=== PATIENT | male | born 1935 | race Caucasian/White ===

== ENCOUNTER 2016-06-23 06:40 | Inpatient (IN) | payer OTHER ==
[~2016-06-23] VITALS: Ht 177.8 cm; Wt 74.8 kg
[2016-06-23] VITALS (7 sets, daily range): BP systolic 141–147; BP diastolic 73–76; PULSE 73–98; RESP 16–20; TEMP 97.8–99.7; O2SAT 86–98
[2016-06-23] MEDS ORDERED: cefOXitin SODIUM 2 GM in D5W 100 ML IV ONE (07:00)
[2016-06-23] MEDS ORDERED: ALVIMOPAN 12 MG CAPSULE PO ONE ×3 (07:15→07:45)
[2016-06-23] MEDS ORDERED: LR 1,000 ML IV SCH (10:34)
[2016-06-23] MEDS ORDERED: MORPHINE 2 MG/ML INJ. SYRINGE IVP PRN ×2 (10:45)
[2016-06-23] MEDS ORDERED: METOCLOPRAMIDE HCL 10 MG/2 ML VIAL IVP PRN (10:45)
[2016-06-23] MEDS ORDERED: ONDANSETRON HCL 4 MG/2 ML VIAL IVP PRN (11:15)
[2016-06-23] MEDS ORDERED: HYDROcodone/ACETAMIN 5-325 MG TAB (NORCO/ VICODIN) PO PRN ×2 (11:15)
[2016-06-23] MEDS ORDERED: ACETAMINOPHEN 325 MG TABLET PO PRN (11:15)
[2016-06-23] MEDS: MORPHINE 2 MG/ML INJ. SYRINGE IVP PRN ×2 (11:21→12:03)
[2016-06-23] MEDS ORDERED: MORPHINE 4 MG/ML INJ. SYRINGE ONE ×2 (11:30→12:08)
--- NOTE | 2016-06-23 12:30 | NUR ---
OPENING NOTES, RECEIVED PT FROM PACU, PT IS AAOX4 , C/O 09/22 PAIN, WILL MEDICATE ARNALDO, OREINETED TO ROOM AND NURSES, USE OF CALL LIGHT AND TELEPHONE . SAUCEDO ON FOOT OF BED, IF INFUSING WELL. FAMILY AT BEDSIDE. INSTRUCTED TO CALL FOR PAIN MED AND ASSIST.
[2016-06-23] MEDS: HYDROmorphone 1 MG INJ. 1 MG/ML AMPUL IVP PRN ×2 (13:17→21:28)
[2016-06-23] MEDS: D5/0.45 NS 1,000 ML IV SCH ×2 (13:28→21:20)
[2016-06-23] MEDS ORDERED: D5W 250 ML IV.SOLN IV ONE (14:00)
[2016-06-23] MEDS ORDERED: NS 1000 ML BAG IV ONE (14:00)
[2016-06-23] MEDS ORDERED: fentaNYL CITRATE 250 MCG/5 ML AMP ONE (14:00)
[2016-06-23] MEDS ORDERED: MIDAZOLAM HCL 5 MG/5 ML VIAL ONE (14:00)
[2016-06-23] MEDS ORDERED: BUPIVACAINE LIPOSOME/PF 266 MG/20 ML VIAL INFIL ONE (14:00)
[2016-06-23] MEDS ORDERED: ROCURONIUM BROMIDE 10 MG/ML (ZEMURON) ONE (14:00)
[2016-06-23] MEDS ORDERED: LR 1,000 ML IV.SOLN IV ONE (14:00)
[2016-06-23] MEDS ORDERED: ONDANSETRON HCL 4 MG/2 ML VIAL ONE (14:00)
[2016-06-23] MEDS ORDERED: SEVOFLURANE 15 MIN GAS INH ONE (14:00)
[2016-06-23] MEDS ORDERED: PROPOFOL 200MG/ 20ML VIAL (DIPRIVAN) IV ONE (14:00)
[2016-06-23] MEDS ORDERED: cefOXitin SODIUM 2 GM/VIAL (MEFOXIN) ONE (14:00)
--- NOTE | 2016-06-23 14:00 | NUR ---
NOTES, PT IN BED,, FAMILY AT BEDSIDE, DENIES PAIN , NO SOB, NO DISTRESS. IV INFUSING WELL. SAUCEDO AT FOOT OF BED, CALLIGHT IN REACH, BED IN LOW POSITION. INSTRUCTED TO CALL FOR PAIN MED AND ASSIST
[2016-06-23 15:18] LABS: HEMATOCRIT 33.9 % (36-54); HEMOGLOBIN 11.3 g/dL (14.0-18.0)
[2016-06-23 15:26] LABS: ANION GAP 7 (5-15); CALCIUM 7.7 mg/dL (8.4-11.0); CHLORIDE 108 mmol/L (98-107); CREATININE 0.98 mg/dL (0.55-1.30); GLUCOSE 188 mg/dL (70-99); SODIUM SERUM 143 mmol/L (136-145); UREA NITROGEN, BLOOD 14 mg/dL (8-21)
--- NOTE | 2016-06-23 18:15 | NUR ---
DR LACHELLE LAROSE WAS HERE AND SEEN PT. Addendum: 06/23/16 at 1816 by Romaine Powers RN PLEASE DISREGARD THIS NOTE, JAYE REEDELONGS TO ANOTHER PATIENT
--- NOTE | 2016-06-23 18:53 | NUR ---
Closing Notes; pt remained aa/ox4, c/o and was medicated, deshpande at foot of bed, iv fluids ongoing, no sob, no distress. call light in reach and bed in low position. surgery site remained dry and intact. will endorse to night rn.
--- NOTE | 2016-06-23 19:25 | NUR ---
initial nursing notes: Patient is awake. Patient has IV fluid infusing on the left forearm IV access. Patient's family members are at the patient's bedside visiting the patient.
[2016-06-23] MEDS: ALVIMOPAN 12 MG CAPSULE PO SCH (21:16)
--- NOTE | 2016-06-23 21:25 | NUR ---
nursing rounds: Patient states of having abdominal pain. Will provide PRN medication as ordered.
[2016-06-23] MEDS: cefOXitin SODIUM 2 GM in D5W 100 ML IV SCH (21:35)
--- NOTE | 2016-06-23 23:25 | NUR ---
nursing rounds: Patient is asleep. Patient has no shortness of breath.
--- NOTE | 2016-06-24 01:25 | NUR ---
nursing rounds: Patient is sleeping in bed. Chiu catheter draining tony colored urine output.
[2016-06-24] MEDS: FAMOTIDINE PF 20 MG/2 ML VIAL IVP SCH ×3 (02:13→21:03)
--- NOTE | 2016-06-24 03:25 | NUR ---
nursing rounds: Patient is asleep. Patient has no respiratory distress.
[2016-06-24 04:15] VITALS: BP 140/70; PULSE 82; RESP 16; TEMP 97.8; O2SAT 95
--- NOTE | 2016-06-24 05:25 | NUR ---
nursing rounds: Patient calmly resting in bed. Call light within patient's reach.
[2016-06-24 06:39] LABS: BASOPHILS % (AUTO) 0.6 % (0.0-2.0); EOSINOPHILS # (AUTO) 0.1 K/uL (0.0-0.4); EOSINOPHILS % (AUTO) 1.4 % (0.0-4.0); HEMATOCRIT 35.2 % (36-54); HEMOGLOBIN 11.4 g/dL (14.0-18.0); LYMPHOCYTES # (AUTO) 0.8 K/uL (1.0-5.5); LYMPHOCYTES % (AUTO) 13.4 % (20.5-51.5); MEAN CORPUSCULAR HEMOGLOBIN 32 pg (27-31); MEAN CORPUSCULAR HGB CONC 33 % (32-36); MEAN CORPUSCULAR VOLUME 99 fL (79.0-98.0); MONOCYTES # (AUTO) 0.6 K/uL (0.0-1.0); MONOCYTES % (AUTO) 10.3 % (1.7-9.3); NEUTROPHILS # (AUTO) 4.5 K/uL (1.8-7.7); NEUTROPHILS % (AUTO) 74.3 % (40.0-70.0); PLATELET COUNT (AUTO) 200 K/uL (130-430); RED BLOOD CELL COUNT(AUTO) 3.55 MIL/uL (4.2-6.2); RED CELL DISTRIBUTION WIDTH 16.5 % (9.0-15.0)
[2016-06-24 06:58] LABS: ALANINE AMINOTRANSFERASE 20 U/L (12-78); ALBUMIN 3.1 g/dL (3.4-4.8); ANION GAP 0 (5-15); ASPARTATE AMINOTRANSFERASE 20 U/L (10-37); CALCIUM 7.8 mg/dL (8.4-11.0); CHLORIDE 104 mmol/L (98-107); CREATININE 0.83 mg/dL (0.55-1.30); GLUCOSE 138 mg/dL (70-99); POTASSIUM 4.4 mmol/L (3.5-5.1); SODIUM SERUM 138 mmol/L (136-145); TOTAL BILIRUBIN 0.8 mg/dL (0.0-1.0); TOTAL PROTEIN, SERUM 5.6 g/dL (6.4-8.3); UREA NITROGEN, BLOOD 8 mg/dL (8-21)
--- NOTE | 2016-06-24 07:35 | NUR ---
closing nursing notes: Patient is awake, alert and oriented X 4. Patient is in no acute respiratory distress. 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 Provided nursing report to incoming morning shift nurse, JOSE CARLOS Gavin, at patient's bedside.
--- NOTE | 2016-06-24 08:00 | NUR ---
OPENING NOTES; PT IN BED, C/O OF ABDOMINAL SURGICAL PAIN LEVEL 3/10 BUT TOLERABLE. NO SOB NO DISTRESS, CALL LIGHT IN REACH. BED IN LOW POSITION. SAUCEDO PATENT , AT FOOT OF BED. INSTRUCTED TO CALL FOR PAIN MED AND ASSISTANCE.
[2016-06-24 08:11] VITALS: BP 138/60; PULSE 83; RESP 18; TEMP 97.2; O2SAT 93
[2016-06-24] MEDS: ALVIMOPAN 12 MG CAPSULE PO SCH ×2 (08:50→21:03)
[2016-06-24] MEDS: ENOXAPARIN SODIUM 30 MG/0.3 ML SYRINGE SUBCUT SCH (08:51)
--- NOTE | 2016-06-24 08:51 | NUR ---
Nutrition Update [place] Scale 17 noted. Pt admitted for Dz of intestine, unspecified. Diet: NPO BMI: 23.7 kg/m2 RD to follow per nutrition care standards.
[2016-06-24] MEDS: cefOXitin SODIUM 2 GM in D5W 100 ML IV SCH (08:52)
--- NOTE | 2016-06-24 10:00 | NUR ---
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 NO SOB NO DISTRESS, CALL LIGHT IN REACH. BED IN LOW POSITION. INSTRUCTED TO CALL FOR PAIN MED AND ASSISTANCE.
[2016-06-24] MEDS: D5/0.45 NS 1,000 ML IV SCH ×2 (10:12→21:02)
--- NOTE | 2016-06-24 10:45 | NUR ---
pt alert. lives in ss home (spouse is on hospice and is in respit care at present). pt is indep adls. + drives and has family to assist upon d/c. has some dme in the home (from spouse) not using. will follow hosp course/pclnoreen rn/linn/n[facility] [phone]
[2016-06-24 11:32] VITALS: BP 140/74; RESP 16; TEMP 96.3; O2SAT 95
--- NOTE | 2016-06-24 11:37 | NUR ---
GI Consult: for Dr. Nova, regarding abdominal pain, ordered by Dr. Lr, spoke with Karmen.
--- NOTE | 2016-06-24 12:15 | NUR ---
NOTES; PT IN ROOM, SITTING IN CHAIR, C/O PAIN 3-410 , PT STATED TOLERABLE, HAD GOOD RELIEVE FROM PAIN MED GIVEN THIS AM. SAUCEDO DISCONTINUED, NO BLEEDING NOTED, PT TOLERATED WELL. EXPLAINED TO PT HE WILL BE EXPERIENCE SOME STINGING WHEN HE URINATE THE FIRST TIME BUT IT SHOULD BE GONE. PROVIDED PT WITH URINAL. TOLD PT TO TELL RN WHEN VOIDS. NO SOB, NO DISTRESS, PT STATED HE WANTS TO CONTINUE SITTING ON THE CHAIR AND WILL SLOWLY EAT HIS CLEAR LIQUID MEAL. WILL CONT TO MONITOR.
[2016-06-24] MEDS: METOCLOPRAMIDE HCL 10 MG/2 ML VIAL IVP SCH ×2 (12:25→17:30)
--- NOTE | 2016-06-24 14:00 | NUR ---
NOTES; PT SITTING IN CHAIR, C/O OF ABDOMINAL SURGICAL PAIN LEVEL 4/10 BUT TOLERABLE. NO SOB NO DISTRESS, CALL LIGHT IN REACH. BED IN LOW POSITION. INSTRUCTED TO CALL FOR PAIN MED AND ASSISTANCE.
[2016-06-24 15:29] VITALS: BP 136/68; PULSE 84; RESP 16; TEMP 97.2; O2SAT 98
--- NOTE | 2016-06-24 16:00 | NUR ---
NOTES; PT SITTING IN CHAIR, C/O OF ABDOMINAL SURGICAL PAIN LEVEL 4/10 BUT TOLERABLE.ADBOMINAL BINDER STILL ON. PT STATED HE VOIDED IN THE BATHROOM AFTER SHERYL WAS DC'D. NO SOB NO DISTRESS, CALL LIGHT IN REACH. BED IN LOW POSITION. INSTRUCTED TO CALL FOR PAIN MED AND ASSISTANCE.
--- NOTE | 2016-06-24 18:15 | NUR ---
CLOSING NOTES, PT IN BED, EATING DINNER OF CLEAR LIQUID DIET, FAMILY AT BEDSIDE. PAIN PER PT IS TOLERABLE, OFFERED PAIN MED, BUT PT REFUSED STATED HE WILL TAKE IT LATER IF HE STILL HAS PAIN BEFORE GOING TO SLEEP. IV SITE DRY AND INTACT, IV INFUSING WELL. CALL LIGHT IN REACH, BED IN LOW POSITION.
--- NOTE | 2016-06-24 19:40 | NUR ---
OPENING NOTE PATIENT IS A/OX4. NO SIGNS OF DISTRESS. BREATHING IS NON LABORED. VITAL SIGNS ARE STABLE. DRESSING TO THE ABDOMEN IS CLEAN, DRY, AND INTACT. BINDER TO THE ABDOMEN IS NOTED. PATIENT INSTRUCTED TO CALL FOR ASSISTANCE. SAFETY MEASURES ARE IN PLACE. WILL CONTINUE TO MONITOR.
[2016-06-24 19:50] VITALS: BP 147/81; PULSE 90; RESP 17; TEMP 99.3; O2SAT 94
--- NOTE | 2016-06-24 20:00 | NUR ---
ROUNDS PATIENT ASSISTED TO THE RESTROOM AND BACK INTO BED. GATE IS STEADY.
--- NOTE | 2016-06-24 22:05 | NUR ---
ROUNDS PATIENT WAS ASSISTED TO THE RESTROOM AND BACK INTO BED. GAIT IS STEADY. PATIENT IS RESTING COMFORTABLY IN BED. WILL CONTINUE TO MONITOR. BED ALARM IS ON. CALL LIGHT IS WITHIN REACH.
--- NOTE | 2016-06-25 00:17 | NUR ---
ROUNDS PATIENT IS IN BED SLEEPING. NO SIGNS OF DISTRESS. BREATHING IS NON LABORED. CALL LIGHT IS WITHIN REACH. BED ALARM IS ON. WILL CONTINUE TO MONITOR.
[2016-06-25] MEDS: METOCLOPRAMIDE HCL 10 MG/2 ML VIAL IVP SCH ×3 (00:34→12:44)
[2016-06-25 00:56] VITALS: BP 144/64; PULSE 95; RESP 17; TEMP 97; O2SAT 93
--- NOTE | 2016-06-25 02:00 | NUR ---
ROUNDS PATIENT IS IN BED SLEEPING. NO SIGNS OF DISTRESS. BREATHING IS NON LABORED. SAFETY MEASURES ARE IN PLACE. WILL CONTINUE TO MONITOR.
--- NOTE | 2016-06-25 03:12 | NUR ---
PATIENT WAS ASSISTED TO THE RESTROOM AND BACK INTO BED. GAIT IS STEADY. PATIENT IS IN BED RESTING COMFORTABLY.
[2016-06-25] MEDS: D5/0.45 NS 1,000 ML IV SCH ×2 (03:13→06:33)
[2016-06-25 03:25] VITALS: BP 125/57; PULSE 88; RESP 18; TEMP 98.9; O2SAT 94
--- NOTE | 2016-06-25 06:32 | NUR ---
CLOSING NOTES PATIENT IS IN BED SLEEPING. NO SIGNS OF DISTRESS. BREATHING IS NON LABORED. IV IS PATENT AND SHOWS NO SIGNS OF COMPLICATIONS. BED ALARM IS ON. CALL LIGHT IS WITHIN REACH. WILL ENDORSE ALL CARE TO THE MORNING NURSE.
[2016-06-25 08:00] VITALS: BP 135/80; PULSE 80; RESP 16; TEMP 98; O2SAT 92
--- NOTE | 2016-06-25 08:00 | NUR ---
initial notes rec patient awake alert with ivf infusing well on the l wrist. no infiltration noted. abdominal dressing with binder intact. resp easy and unlabored. bed in low position and side rails up and locked. call light within reached. instructed re fall safety. will continue to monitor patient.
--- NOTE | 2016-06-25 08:55 | NUR ---
rounds up and walking with pt on the hallway and twan well.
[2016-06-25] MEDS: ENOXAPARIN SODIUM 30 MG/0.3 ML SYRINGE SUBCUT SCH (09:43)
[2016-06-25] MEDS: ALVIMOPAN 12 MG CAPSULE PO SCH (09:44)
[2016-06-25] MEDS: FAMOTIDINE PF 20 MG/2 ML VIAL IVP SCH (09:45)
--- NOTE | 2016-06-25 10:00 | NUR ---
rounds ambulating with p.t twan well on the hallway. no acute distress noted.
[2016-06-25 12:00] VITALS: BP 144/80; PULSE 96; RESP 20; TEMP 97.2; O2SAT 93
--- NOTE | 2016-06-25 12:00 | NUR ---
rounds pt twan clear liquid diet. no nausea vomiting noted.
--- NOTE | 2016-06-25 13:00 | NUR ---
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 dressingon the abdomen was taken out by dr anders. incision looks dry and clean. no s/s of infection noted.
[2016-06-25 15:36] VITALS: BP 144/80; PULSE 93; RESP 20; TEMP 97.2; O2SAT 96
--- NOTE | 2016-06-25 16:00 | NUR ---
closing notes pt's daughter came and picked up patient. id band was removed and ivl was removed. no acute distress instructed re transitional care instruction and understood. no sob noted. refused wheelchair and ambulated outside and twan well.stable and needs attended.
--- NOTE | 2016-06-26 10:55 | NUR ---
Discharge Follow Up Phone Call CLOTH COVERED HEL[employer] P[employer]ER phoned patient, . Patient stated that he was doing well. He had no questions or concerns. He has a follow up appointment made with Dr Neal. He would like his daughter listed as his person to notify, as his is on hospice: Danielle arana [phone] c [phone]. CLOTH C[employer]ED HELMET P[employer]ER notified Sasha in admitting. Patient has support from his family. No further follow up calls needed.
== END 2016-06-25 16:00 | disposition home or self-care (01) | DRG 331 ==
LOC: SMU 06:40
PROVIDERS: ADMIT Colon & Rectal Surgery; ATTEND Colon & Rectal Surgery
PROC: 0DTF4ZZ Resection of Right Large Intestine, Percutaneous Endoscopic Approach (ICD-10-PCS; principal; 2016-06-23 08:55)
DX: K63.9 Disease of intestine, unspecified (principal); K26.9 Duodenal ulcer, unspecified as acute or chronic, without hemorrhage or perforation; Z85.89 Personal history of malignant neoplasm of other organs and systems; Z82.3 Family history of stroke; Z87.891 Personal history of nicotine dependence
CPT/HCPCS: 36415; 80048; 80053; 85018-TC; 85025; 87081; 88307; 94010; 94760; 97110-GP; 97116-GP; 97530-GP; C1727; C9290; J0694; J1170; J1650; J2250; J2270; J2405; J2704; J2765; J3010; J3490; J7030; J7060; J7120